=== PATIENT | female | born 1955 | race Caucasian/White ===

== ENCOUNTER 2018-02-15 09:09 | Emergency (ER) | payer OTHER ==
[~2018-02-15] VITALS: Ht 172.7 cm; Wt 60.3 kg
[2018-02-15 09:10] VITALS: BP 124/55
--- NOTE | 2018-02-15 09:49 | RAD ---
EXAM: AP, mortise and lateral views of the right foot DATE: 02/15/2018 9:22 AM INDICATION: RIGHT LATERAL ANKLE PAIN COMPARISON: No Prior FINDINGS: There is a small comminuted avulsion fracture of the lateral malleolar tip. Moderate overlying soft tissue swelling. Ankle mortise is congruent. Talar dome is intact. Small plantar calcaneal enthesophyte. IMPRESSION: 1. Comminuted avulsion fracture at the tip of the lateral malleolus with moderate overlying soft tissue swelling. 2. Calcaneal enthesopathy. Electronically signed by: Tani Calixto MD (02/15/2018 9:46 AM) [id number]
--- NOTE | 2018-02-15 09:53 | PHYS DOC ---
Past History Past Medical History: No Pertinent History Past Surgical History: Other Alcohol Use: None Drug Use: None Adult General Chief Complaint Chief Complaint: ANKLE PROBLEM HPI HPI Patient is a 62-year-old female who presents with injury to her right ankle that she sustained while being engaged in sporting activities. Patient states that she was climbing a rope and when she dismounted off the road, she landed on her right ankle incorrectly. Patient states that she did not want to try to bear weight due to the initial pain and swelling. Patient states that symptoms are similar to when she had broken her left ankle. She denies any other injuries. She states that pain is currently a 0 out of 10 as long as she is nonweightbearing. Review of Systems Review of Systems Constitutional: Denies fever or chills [] Respiratory: Denies cough or shortness of breath [] Musculoskeletal: Complains of right ankle pain, swelling[] Integument: Denies rash or skin lesions [] All other systems were reviewed and found to be within normal limits, except as documented in this note. Physical Exam Physical Exam Constitutional: Well developed, well nourished, no acute distress, non-toxic appearance. [] Neck: Normal range of motion, no tenderness, supple, no stridor. [] Cardiovascular:Heart rate regular rhythm [] Lungs & Thorax: Bilateral breath sounds clear to auscultation [] Extremities: Right ankle demonstrates moderate soft tissue swelling around the right lateral malleolus with tenderness to palpation. There is mild ecchymosis overlying this area. Range of motion was not tested due to injury. [] Neurologic: Alert and oriented X 3, normal motor function, normal sensory function, no focal deficits noted. [] Current Patient Data Vital Signs Vital Signs Date Time Temp Pulse Resp B/P (MAP) Pulse Ox O2 Delivery O2 Flow Rate FiO2 02/15/18 09:10 98.2 64 18 96 Room Air EKG EKG [] Radiology/Procedures Radiology/Procedures [] Impressions: Right ankle placed in posterior splint by ER nurse. Patient noted to be neurovascularly intact with good fit and alignment noted post placement. Patient given crutches with training. Course & Med Decision Making Course & Med Decision Making Pertinent Labs and Imaging studies reviewed. (See chart for details) [] Dragon Disclaimer Dragon Disclaimer This electronic medical record was generated, in whole or in part, using a voice recognition dictation system. Departure Departure: Impression: Primary Impression: Fx lateral malleolus-closed Disposition: 01 HOME, SELF-CARE Condition: STABLE Referrals: KARIS JOHN DO, M[facility] (PCP) Patient Instructions: Ankle Fracture Additional Instructions: Take prescribed medication as directed. Follow-up with orthopedist of choice in the next week to 10 days. Problem Qualifiers Primary Impression: Fx lateral malleolus-closed Encounter type: initial encounter Fracture alignment: nondisplaced Laterality: right Qualified Codes: S82.64XA - Nondisplaced fracture of lateral malleolus of right fibula, initial encounter for closed fracture STEVEN ROSENTHAL Jr., DO Feb 15, 2018 09:53
== END 2018-02-15 10:30 | disposition home or self-care (01) ==
LOC: ER 09:09
DX: S82.64XA Nondisplaced fracture of lateral malleolus of right fibula, initial encounter for closed fracture (principal); W17.89XA Other fall from one level to another, initial encounter; Y93.39 Activity, other involving climbing, rappelling and jumping off; Y92.89 Other specified places as the place of occurrence of the external cause; Y99.8 Other external cause status
CPT/HCPCS: 29515; 73610; 99284